=== PATIENT | female | born 1990 | race African-American/Black ===

== ENCOUNTER 2018-01-17 12:52 | Emergency (ER) | payer SELFPAY ==
[~2018-01-17] VITALS: Ht 154.9 cm; Wt 59.6 kg
[2018-01-17 13:22] VITALS: BP 117/76
== END 2018-01-17 15:20 ==
LOC: ED 15:14
DX: H00.015 Hordeolum externum left lower eyelid (principal)
CPT/HCPCS: 99283

== ENCOUNTER 2018-01-25 16:58 | Observation (INO) | payer MEDICAID ==
[~2018-01-25] VITALS: Ht 154.9 cm; Wt 59.7 kg
[~2018-01-25 16:58] MED LIST: PROPOFOL 10 MG/ML, 20ML ONE; SUCCINYLCHOLINE 20 MG/ML, 10ML ONE
[2018-01-25 17:04] VITALS: BP 105/74
[2018-01-25] MEDS ORDERED: SODIUM CHLORIDE FLUSH 10ML SYR IVF ONE (18:00)
[2018-01-25 18:04] LABS: BASOPHILS # (AUTO) 0.02 x10^3/uL (0-0.1); BASOPHILS % (AUTO) 0 % (0-1); EOSINOPHILS # (AUTO) 0.03 x10^3/uL (0-0.4); EOSINOPHILS % (AUTO) 0 % (1-7); LYMPHOCYTES # (AUTO) 2.42 x10^3/uL (1-3.4); LYMPHOCYTES % (AUTO) 21 % (22-44); MD NO; MEAN CORPUSCULAR HEMOGLOBIN 31.7 pg (27.0-34.8); MEAN CORPUSCULAR HGB CONC 34.6 g/dL (32.4-35.8); MEAN CORPUSCULAR VOLUME 91.4 fL (80-100); MEAN PLATELET VOLUME 8.1 fL (7.4-10.4); MONOCYTES # (AUTO) 1.03 x10^3/uL (0.2-0.8); MONOCYTES % (AUTO) 9 % (2-9); NEUTROPHILS # (AUTO) 7.95 x10^3/uL (1.8-6.8); NEUTROPHILS % (AUTO) 69 % (42-75); PLATELET COUNT 436 x10^3/uL (130-400); RED BLOOD COUNT 5.04 x10^6/uL (3.82-5.3); RED CELL DISTRIBUTION WIDTH 11.6 % (9.6-15.2)
[2018-01-25 18:15] LABS: ALBUMIN 3.9 g/dL (3.4-5.0); ANION GAP 3 mmol/L (5-15); CALCIUM 8.8 mg/dL (8.5-10.1); CHLORIDE 109 mmol/L (98-107); CREATININE 0.72 mg/dL (0.55-1.02)
[2018-01-25] MEDS ORDERED: HYDROcodone/APAP 5/325 TABLET PO ONE (18:30)
[2018-01-25] MEDS ORDERED: OMNIPAQUE 350 MG/ML, 100ML BOTTLE ONE (18:50)
[2018-01-25] MEDS ORDERED: HYDROcodone/APAP 5/325 TABLET ONE (18:58)
[2018-01-25] MEDS ORDERED: MORPHINE SULFATE 4 MG/ML, 1ML ONE (19:57)
[2018-01-25] MEDS ORDERED: morphine SULFATE/PF 1 MG/ML, 10ML IVPush PRN (20:00)
[2018-01-25] MEDS ORDERED: BUPIVACAINE/PF-EPI 0.5% 1:200K ONE (20:39)
[2018-01-25] MEDS ORDERED: FENTANYL PF 100 MCG/2ML ONE ×4 (21:01→22:03)
[2018-01-25] MEDS ORDERED: MIDAZOLAM 1 MG/ML, 2ML ONE (21:01)
[2018-01-25] MEDS ORDERED: PROMETHAZINE 25 MG/ML, 1ML ONE (21:08)
[2018-01-25] MEDS ORDERED: OXYcodone 5 MG/5 ML ORAL.SOL UDC PO PRN ×2 (21:30→23:45)
[2018-01-25] MEDS ORDERED: LORazepam 2 MG/ML, 1ML IVPush PRN (21:30)
[2018-01-25] MEDS ORDERED: MEPERIDINE/PF 25MG/0.5ML IVPush PRN (21:30)
[2018-01-25] MEDS ORDERED: ACETAMINOPHEN 325 MG TABLET PO PRN (21:30)
[2018-01-25] MEDS ORDERED: PROMETHAZINE 25 MG/ML, 1ML IV PRN (21:30)
[2018-01-25] MEDS ORDERED: FENTANYL PF 100 MCG/2ML IV PRN (21:30)
[2018-01-25] MEDS ORDERED: HALOPERIDOL 5 MG/ML IV PRN (21:30)
[2018-01-25] MEDS ORDERED: HYDROmorphone 2 MG/ML, 1ML ONE (22:03)
[2018-01-25] MEDS: HYDROmorphone 2 MG/ML, 1ML IVPush PRN ×2 (22:06→22:29)
[2018-01-25] MEDS ORDERED: ACET325C5 PO (23:26)
[2018-01-25] MEDS ORDERED: OXYC5CAP2 PO (23:27)
[2018-01-25] MEDS ORDERED: IBUP-1223 PO (23:27)
[2018-01-25] MEDS ORDERED: ONDANSETRON 2MG/ML, 2ML IVPush PRN (23:45)
[2018-01-25] MEDS ORDERED: ACETAMINOPHEN 500 MG TABLET PO SCH (23:45)
[2018-01-26] MEDS ORDERED: IBUPROFEN 800 MG TABLET PO SCH (08:00)
== END 2018-01-26 11:53 | disposition home or self-care (01) ==
LOC: ED 17:52 → EDIP 17:53 → ED 22:50 → 4NOR 22:50 → UNDOADMOB 01-26 09:42 → EDIP 01-26 09:42 → 4NOR 01-26 11:52
PROVIDERS: ADMIT Surgery; ATTEND Surgery
DX: K61.1 Rectal abscess (principal)
CPT/HCPCS: 36415; 46040; 72193; 80048; 82040; 84703; 85025; 87070; 87075; 87077; 87102; 87186; 87205; 99284; G0378; J0330; J1170; J2250; J2274; J2704; J3010; Q9967; 87116; 87206

== ENCOUNTER 2018-07-06 16:55 | Emergency (ER) | payer SELFPAY ==
[~2018-07-06] VITALS: Ht 154.9 cm; Wt 57.8 kg
[~2018-07-06 16:55] MED LIST changes: +ACET325C5 PO; +IBUP-1223 PO; +OXYC5CAP2 PO; -PROPOFOL 10 MG/ML, 20ML ONE; -SUCCINYLCHOLINE 20 MG/ML, 10ML ONE
[2018-07-06 17:01] VITALS: BP 103/71
[2018-07-06 17:31] LABS: BASOPHILS # (AUTO) 0.03 x10^3/uL (0-0.1); BASOPHILS % (AUTO) 0 % (0-1); EOSINOPHILS % (AUTO) 1 % (1-7); LYMPHOCYTES # (AUTO) 3.13 x10^3/uL (1-3.4); LYMPHOCYTES % (AUTO) 33 % (22-44); MD NO; MEAN CORPUSCULAR HEMOGLOBIN 31.9 pg (27.0-34.8); MEAN CORPUSCULAR HGB CONC 34.3 g/dL (32.4-35.8); MEAN CORPUSCULAR VOLUME 93.1 fL (80-100); MEAN PLATELET VOLUME 7.9 fL (7.4-10.4); MONOCYTES # (AUTO) 0.81 x10^3/uL (0.2-0.8); MONOCYTES % (AUTO) 9 % (2-9); NEUTROPHILS # (AUTO) 5.33 x10^3/uL (1.8-6.8); NEUTROPHILS % (AUTO) 57 % (42-75); PLATELET COUNT 504 x10^3/uL (130-400); RED BLOOD COUNT 5.19 x10^6/uL (3.82-5.3); RED CELL DISTRIBUTION WIDTH 12.9 % (9.6-15.2)
[2018-07-06 17:45] LABS: ALBUMIN 4.1 g/dL (3.4-5.0); ANION GAP 4 mmol/L (5-15); CALCIUM 9.4 mg/dL (8.5-10.1); CHLORIDE 103 mmol/L (98-107)
--- NOTE | 2018-07-06 17:46 | NUR ---
TISSUE REWINDER: PT TO ROOM FROM [facility]
[2018-07-06 17:51] LABS: ALANINE AMINOTRANSFERASE 22 U/L (12-78); ALKALINE PHOSPHATASE 87 U/L (45-117); BILIRUBIN,TOTAL 0.6 mg/dL (0.2-1.0); CREATININE 0.79 mg/dL (0.55-1.02); TOTAL PROTEIN 8.2 g/dL (6.4-8.2)
[2018-07-06 18:10] LABS: MICROSCOPIC NOT IND
[2018-07-06] MEDS ORDERED: ONDANSETRON ODT 4 MG ONE (18:25)
[2018-07-06] MEDS ORDERED: DICYCLOMINE 10 MG CAPSULE ONE (18:25)
[2018-07-06] MEDS ORDERED: DICYCLOMINE 20 MG TABLET PO ONE (18:30)
[2018-07-06] MEDS ORDERED: ONDANSETRON ODT 4 MG PO ONE (18:30)
[2018-07-06 18:31] LABS: CULTURE INDICATED? NO
[2018-07-06 19:07] LABS: CLOSTRIDIUM DIFFICILE ANTIGEN NEGATIVE; CLOSTRIDIUM DIFFICILE TOXIN NEGATIVE (Negative)
--- NOTE | 2018-07-06 19:22 | NUR ---
received report from anna santa. pt ambulating steadily in room. pt requesting more meds, stated the med she just received is not working. pt informed med is oral and will take time. pt okay with this and walked back to her room. will continue to monitor.
== END 2018-07-06 20:44 | disposition home or self-care (01) ==
LOC: ED 20:38
DX: R10.84 Generalized abdominal pain (principal); R19.7 Diarrhea, unspecified; R11.2 Nausea with vomiting, unspecified
CPT/HCPCS: 36415; 80053; 81003; 83690; 84703; 85025; 87324; 89055; 99283; Q0162